=== PATIENT | female | born 2000 | race Asian ===

== ENCOUNTER 2018-10-17 14:57 | Emergency (ER) | payer OTHER ==
[~2018-10-17] VITALS: Ht 162.6 cm; Wt 51.3 kg
[2018-10-17 15:13] VITALS: Ht 162.6 cm; Wt 51.3 kg
[2018-10-17 16:52] LABS: microscopic required? NO
[2018-10-17 16:58] LABS: urine erythrocyte NEGATIVE (NEGATIVE)
[2018-10-17 17:02] LABS: CARBON DIOXIDE 29.4 mmol/L (21-32); CHLORIDE SERUM 108 mmol/L (98-107); CREATININE SERUM 0.8 mg/dL (0.6-1.0); GFR1 > 60 mL/min; GLUCOSE SERUM 67 mg/dL (74-106); SODIUM SERUM 146 mmol/L (136-145)
[2018-10-17 17:05] LABS: BASOPHIL % 0.5 % (0-2); PLATELET COUNT 219 x10^3mcL (130-400); RED CELL DISTRIBUTION WIDTH 14.3 % (11.5-14.5)
[2018-10-17 17:06] LABS: ALBUMIN 3.9 g/dL (3.4-5.0); ALKALINE PHOSPHATASE 56 U/L (46-116); ALT/SGPT 20 U/L (14-59); AST/SGOT 12 U/L (15-37); BILIRUBIN TOTAL 0.49 mg/dL (0.20-1.00); TOTAL PROTEIN, SERUM 7.2 g/dL (6.4-8.2)
[2018-10-17 17:09] LABS: AMPHETAMINE QUAL UR NONE DETECTED (See below)
[2018-10-17 18:16] VITALS: BP 109/73
== END 2018-10-17 18:16 | disposition home or self-care (01) ==
LOC: ED 14:57
PROVIDERS: Emergency Medicine
DX: F41.9 Anxiety disorder, unspecified (principal); Z13.9 Encounter for screening, unspecified
CPT/HCPCS: 36415; 82962; G0480

== ENCOUNTER 2018-11-06 12:02 | Emergency (ER) | payer OTHER ==
[~2018-11-06] VITALS: Ht 165.1 cm; Wt 54.4 kg
[2018-11-06 12:16] VITALS: Ht 165.1 cm; Wt 54.4 kg
--- NOTE | 2018-11-06 12:19 | NUR ---
PT'S BELONGINGS IN RADIO ROOM IN TWO BAGS
--- NOTE | 2018-11-06 12:20 | NUR ---
PATIENT BIB PD 5150 GRAVELY DISABLED, PER PD, PATIENT STS SHE THOUGHT SHE WAS AND PROCEEDED WITH TAKING PLAN B. PD STS PATIENT STATED THAT SHE HASN'T SLEPT FOR 4 DAYS AND HAS NOT EATEN. PER PD, MOTHER CALLED AND STS THAT PATIENT WAS THROWING ITEMS AND SCREAMING AT GRANDFATHER. ASSESSED PATIENT AND PATIENT STS SHE HAS HISTORY OF SI WITH ATTEMPTS TO OD, STS THAT HER LAST ATTEMPT WAS OVER 1 YEAR AGO. PATIENT STS SHE CURRENTLY HAS NO SI IDEATION, STS NOT HEARING ANY VOICES, STS NO ITENT ON HARMING HERSELF OR OTHERS. STS THAT SHE IS DEALING WITH HER GRANDMOTHER'S . STS "THEY JUST THREW STUFF AT HER COFFIN!" WHEN ASKED IF SHE WAS IN ANY PAIN, STS "BODY PARTS JUST WEREN'T FEELING RIGHT". WHEN ASKED IF SHE HAS SLEPT, PATIENT STS "THERE WAS JUST SO MUCH TO CLEAN". DR. GUERRERO AT BEDSIDE PERFORMING MSE
--- NOTE | 2018-11-06 12:20 | NUR ---
PATIENT BIB PD FOR 515 GRAVELY DISABLED
--- NOTE | 2018-11-06 12:30 | NUR ---
PATIENT STS SHE CURRENTLY IS UNABLE TO URINATE. WILL TRY AGAIN IN 20 MINUTES
[2018-11-06 12:43] LABS: BASOPHIL % 0.3 % (0-2); PLATELET COUNT 205 x10^3mcL (130-400); RED CELL DISTRIBUTION WIDTH 13.2 % (11.5-14.5)
[2018-11-06 12:55] LABS: CALCIUM 9.8 mg/dL (8.5-10.1); CARBON DIOXIDE 23.8 mmol/L (21-32); CHLORIDE SERUM 106 mmol/L (98-107); CREATININE SERUM 0.7 mg/dL (0.6-1.0); GFR1 > 60 mL/min; GLUCOSE SERUM 81 mg/dL (74-106); POTASSIUM SERUM 4.6 mmol/L (3.5-5.1); SODIUM SERUM 140 mmol/L (136-145)
[2018-11-06 13:00] LABS: ALBUMIN 4.4 g/dL (3.4-5.0); ALKALINE PHOSPHATASE 50 U/L (46-116); ALT/SGPT 18 U/L (14-59); AST/SGOT 13 U/L (15-37); TOTAL PROTEIN, SERUM 7.9 g/dL (6.4-8.2)
--- NOTE | 2018-11-06 13:00 | NUR ---
PATIENT AMBULATED TO RESTROOM WITH EBONY ALLEN. PATIENT RETURNED BACK TO BEDSIDE. STEADY GAIT NOTED.
[2018-11-06 13:10] LABS: microscopic required? NO
[2018-11-06 13:16] LABS: BILIRUBIN TOTAL 0.57 mg/dL (0.20-1.00)
[2018-11-06 13:24] LABS: AMPHETAMINE QUAL UR NONE DETECTED (See below); urine erythrocyte NEGATIVE (NEGATIVE)
--- NOTE | 2018-11-06 13:24 | NUR ---
PATIENT RESTING AT BEDSIDE IN NAD
--- NOTE | 2018-11-06 13:30 | NUR ---
PATIENT STS SHE WOULD LIKE FOOD. APPROVED. WILL ORDER LUNCH
--- NOTE | 2018-11-06 13:42 | NUR ---
PATIENT EATING AT BEDSIDE
--- NOTE | 2018-11-06 14:27 | NUR ---
PATIENT RESTING AT BEDSIDE IN NAD. PATIENT HEARD YELLING AND TALKING TO HERSELF. PATIENT STS, "IT'S THE ZEB, 1-2-3, REDUCE, REUSE, RECYLE, CAN YOU BELIEVE THAT PEOPLE 8 KIDS! IT SHOULD BE THE MOTHER, FATHER, AND CHILD!" ASKED PATIENT IF SHE IS IN ANY PAIN AND ASKED IF SHE WILL COOPERATE. PATIENT STS SHE WILL LOWER HER VOICE AND COOPERATE.
--- NOTE | 2018-11-06 14:45 | NUR ---
FATHER AT BEDSIDE
--- NOTE | 2018-11-06 15:17 | NUR ---
PATIENT COMMUNICATING CALMLY WITH FATHER AT BEDSIDE. PATIENT REQUESTS FOR CELL PHONE. CURRENTLY USING CELL PHONE WITH FATHER WATCHING. CURTAINS DRAWN AND PATIENT CAN BE CLEARLY VIEWED BY NURSES AT BEDSIDE.
--- NOTE | 2018-11-06 17:08 | NUR ---
PATIENT RESTING AT BEDSIDE IN NAD. STS SHE WANTS SOMETHING TO WIPE HER FACE WITH. GAVE PATIENT SOME WET WIPES. OFFERED WATER TO PATIENT. PATIENT'S PARENTS WERE AT BEDSIDE AND ARGUING, PARENTS WERE ASKED TO LEAVE. PARENTS COOPERATED AND LEFT.
--- NOTE | 2018-11-06 17:23 | NUR ---
PATIENT WAS UPSET WHEN PARENTS WERE AT BEDSIDE. COMMUNICATED TO PARENTS TO LEAVE THE BEDSIDE. PARENTS COOPERATED. PATIENT IS CURRENTLY CALM AND COOPERATING
--- NOTE | 2018-11-06 18:31 | NUR ---
PATIENT EATING FOOD AND TALKING ON THE CELL PHONE. PATIENT IN NAD.
--- NOTE | 2018-11-06 18:36 | NUR ---
PATIENT RESTING AT BEDSIDE IN NAD. BREATHING E/U, BILATERAL CHEST RISE. BED AT LOWEST POSTION. PATIENT CURRENTLY STILL EATING AND TALKING ON THE CELL PHONE. CURTAINS DRAWN AND PATIENT CAN BE CLEARLY VIEWED FROM NURSES AT STATION.
--- NOTE | 2018-11-06 19:17 | NUR ---
PT EATING DINNER IN BED
--- NOTE | 2018-11-06 19:17 | NUR ---
REPORT RECEIVED FROM YADY CARVER RN I WILL BE RESUMING CARE OF PT AT THIS TIME
--- NOTE | 2018-11-06 19:17 | NUR ---
REPORT OFF TO TANVIR FERRERA
--- NOTE | 2018-11-06 19:33 | NUR ---
PT SEEN CRYING LISTENING TO MUSIC. PT IS CONSOLABLE AND COOPERATIVE WHEN TAKING VITALS. I ASKED PT IF SHE WOULD LIKE TO TALK ABOUT IT AND PT STS "NO IT IS OKAY" PT CONTINUES TO LISTEN TO MUSIC AND PLACING HER HANDS IN PRAYING POSITION CLOSING HER EYES, PT IN VIEW OF NURSE STATION WILL CONTINUE TO MONITOR
--- NOTE | 2018-11-06 19:40 | NUR ---
PT SEEN SCRATCHING HER LEFT FOREARM PT INSTRUCTED TO STOP. PT WAS COOPERATIVE AND VERBALIZED UNDERSTANDING. PT DENIES SI AND HI AT THIS TIME. REDNESS WITH SCATTERED ABRASIONS NOTED TO LEFT FOREARM MD SAHNI MADE AWARE. PT IN VIEW OF NURSE STATION WILL CONTINUE TO MONITOR.
--- NOTE | 2018-11-06 20:15 | NUR ---
TELE PSYCH COMPUTER IN PT RM. PT AWAITING CONSULT
--- NOTE | 2018-11-06 20:25 | NUR ---
PT AMBULATORY WITH STEADY GAIT TO RESTROOM WITH KIRSTEN CAO PER KIRSTEN CAO RN PT WAS CALM AND COOPERATIVE AND RETURN TO BEDSIDE WITH NO INICIDENT
--- NOTE | 2018-11-06 20:35 | NUR ---
PT IN POSITION OF COMFORT RESPS E/U PT IN VIEW OF NURSE STATION WILL CONTINUE TO MONITOR
--- NOTE | 2018-11-06 20:55 | NUR ---
SPOKE WITH TELE PSYCH CONSULT MD SINGER. TELE PSYCH CONSULT NOW IN PROGRESS
--- NOTE | 2018-11-06 22:09 | NUR ---
ATTEMPTED TO GIVE PT ZYPREXA PER MD ORDERS. EDUCATED PT ON MEDICATION. PT STATES "I DONT FEEL COMFORTABLE TAKING IT IF I DONT HAVE INFORMATION PRINTED THAT I CAN READ". PT ALSO STATED "WHEN I AM GOING HOME, WHEN CAN I LEAVE". PT EDUCATED THAT SHE WOULD NOT BE LEAVING ED AT THIS TIME AND PROVIDED PATIENT EDUCATION INFORMATION TO PT ABOUT MEDICATION. PT STATES "ALSO I NEED A PHONE HYDRAULIC PLUMBER". PRIMARY RN MADE AWARE.
--- NOTE | 2018-11-06 22:15 | NUR ---
PT STATING "YOU DIDNT GIVE ME ALL THE INFORMATION" IN REGARDS TO THE MEDICATION. PT ALSO STATING "I NEED TO TALK TO MY FAMILY BEFORE I PUT ANYTHING ARTIFICAL IN MY BODY", "MY PHONE IS AND I NEED TO TALK TO THEM AND IM GETTING ANXIOUS", AND "I NEED TO TELL THEM WHATS HAPPENING HERE". PT GIVEN PT PHONE TO CONTACT FAMILY. PT STATING "IM ENGAGED AND I NEED TO TALK TO MY OR FIANCE". PRIMARY RN MADE AWARE.
--- NOTE | 2018-11-06 22:59 | NUR ---
PT IN POSITION OF COMFORT CALM AND COOPERATIVE TALKING WITH TIA MANUEL RN RESPS E/U WILL CONTINUE TO MONITOR
--- NOTE | 2018-11-06 23:13 | NUR ---
ACCOMPANIED PT TO RESTROOM AND BACK TO ER BED. PT IN NO DISTRESS, RESP E/U, AAOX4. PLACED PT BACK ON FULL CM, NSR, VSS. WILL CONT TO MONITOR.
--- NOTE | 2018-11-06 23:15 | NUR ---
MD SAHNI AT BEDSIDE DISCUSSING POC WITH PT
--- NOTE | 2018-11-06 23:15 | NUR ---
PT REFUSED TO TAKE ZYPREXA MD SAHNI MADE AWARE
--- NOTE | 2018-11-07 00:59 | NUR ---
PT IN POSITION OF COMFORT ON HER PHONE SMILING PT COOPERATIVE WHEN TAKING VITALS RESPS E/U PT IN VIEW OF NURSE STATION WILL CONTINUE TO MONITOR
--- NOTE | 2018-11-07 01:33 | NUR ---
PT IN POSITION OF COMFORT WARM BLANKET PROVIDED PT APPEARS CALM, LIGHTS DIMMED PER PT REQUEST AND COMFORT RESPS E/U PT IN VIEW OF NURSE STATION
--- NOTE | 2018-11-07 02:31 | NUR ---
PT LISTENING TO MUSIC ON HER PHONE IN NAD RESPS E/U VSS PT IN VIEW OF NURSE STATION WILL CONTINUE TO MONITOR
--- NOTE | 2018-11-07 02:55 | NUR ---
PT HAS VISITOR PT STS "MY SIGNIFICANT OTHER" AND IS OKAY WITH HIM COMING TO THE PT VERBALIZED UNDESTANDING TO BE CALM AND COOPERATIVE DURING HIS VISIT PT IN VIEW OF NURSE STATION
--- NOTE | 2018-11-07 03:55 | NUR ---
PT TALKING WITH HER SIGNIFICANT OTHER PT APPEARS CALM PT COOPERATIVE WHEN TAKING VITALS IN NAD AT THIS TIME RESPS E/U VSS PT IN VIEW OF NURSE STATION, WILL CONTINUE TO MONITOR
--- NOTE | 2018-11-07 04:55 | NUR ---
PT ON HER PHONE, RESPS E/U, VSS
--- NOTE | 2018-11-07 05:09 | NUR ---
PT EATING IN BED, VSS RESPS E/U IN NAD PT IN VIEW OF NURSE STATION
--- NOTE | 2018-11-07 05:28 | NUR ---
PT SCREAMING AND PULLING OFF VITAL EQUIPMENT IN ANGER YELLING "YOU LIAR" PT RIPPED OFF HER IDENTIFICATION BAND. PT APPEARS FRUSTRATED MOANING AND GRUNTING. MD SAHNI WITNESSED THIS WELL.
--- NOTE | 2018-11-07 05:40 | NUR ---
PT MEDICATED WITH ZYPREXA 5MG IM PER MD ORDER SEE EMAR RESPS E/U VSS
--- NOTE | 2018-11-07 06:10 | NUR ---
WARM BLANKET PROVIDED PER PT REQUEST AND COMFORT
--- NOTE | 2018-11-07 06:51 | NUR ---
PT ASLEEP BUT AROUSABLE PT IN POSITION OF COMFORT, RESPS E/U, VSS, PT IN VIEW OF NURSE STATION
--- NOTE | 2018-11-07 07:10 | NUR ---
REPORT GIVEN TO DIPTI LO RN WHO IS RESUMING CARE OF PT AT THIS TIME
--- NOTE | 2018-11-07 09:44 | NUR ---
SLEEPING AWAKABLE, COOPERATIVE ,REFUSED TO EAT WANTS TO SLEEP. SKIN WARM AND DRY TOT OUCH, RESP. EASY BREATH SOUNDS CLEAR, WILL CONTINUE TO MONITOR
--- NOTE | 2018-11-07 13:24 | NUR ---
pt currently awake and alert. eating lunch tray and watching tv. siderails up x 2. calm and cooperative. continue to monitor.
--- NOTE | 2018-11-07 15:02 | NUR ---
IRRIGATIONIST DESIGNER AT BEDSIDE COLLECTING BLOOD PT TOLERATING
[2018-11-07 15:31] LABS: CHOLESTEROL/HDL RATIO 2.3; PHOSPHOROUS 4.5 mg/dL (2.5-4.9)
[2018-11-07 15:39] LABS: FREE T4 1.07 ng/dL (0.76-1.46); FREE THYROXINE INDEX 3.1 ug/dL (1.4-4.5); T4(THYROXINE) 9.9 ug/dL (4.7-13.3)
[2018-11-07 15:42] LABS: T3 TOTAL 1.02 ng/mL
--- NOTE | 2018-11-07 15:44 | NUR ---
FAMILY MEMBERS AT BEDSIDE WITH PATIENT.
--- NOTE | 2018-11-07 16:05 | NUR ---
PAGED DUE TO INCREASED AGITATION, NOT FOLLOWING COMMANDS, TAKING OBJECTS OFF QUEZADA IN ROOM, PARANOID BEHAVIOR, PULLING CORDS OUT OF CUPBOARDS, OPENING MEDICAL EQUIPMENT, ATTEMPTING TO REACH IN SHARPS CONTAINER. ATTEMPTED TO RE-ORIENT PT TO UNIT; PROVIDED WITH DIVERSIONAL ACTIVITIES SUCH TV. COMFORT MEASURES GIVEN. PT CONTINUES TO BE UNWILLING TO COOPERATE.
--- NOTE | 2018-11-07 16:12 | NUR ---
PT PLACED INTO 4PT SOFT RESTRAINTS FOR PT. SAFETY. PT EDUCATED ON NEEDS FOR RESTRAINTS. ADVISED PT SHE WILL BE TAKEN OUT OF RESTRAINTS ONCE SHE IS ABLE TO FOLLOW COMMANDS. PT CONTINUOUSLY ATTTEMPING TO GET OUT OF RESTRAITS DESPITE REDIRECTION. CONTINUE TO MONITOR.
--- NOTE | 2018-11-07 16:20 | NUR ---
PT EDUCATED ON MEDICATION, ATIVAN. PT VERBALIZED UNDERSTANDING. MEDICATED AND TOLERATED WELL. CONNECTED TO PULSE OX; CURTAIN OPEN AND IN VIEW OF NURSES STATION. BELONGINGS PLACED IN RADIO ROOM.
--- NOTE | 2018-11-07 16:36 | NUR ---
2 50 DOLLAR BILLS GIVEN TO SECURITY TO BE PLACED IN SAFE. PHONE AND BELONGINGS REMOVED FROM ROOM, LABELED AND PLACED IN CUBBARD.
--- NOTE | 2018-11-07 16:48 | NUR ---
PT SLEEPING. BREATHING EVEN UNLABORED. PT RESPONDS TO VERBAL STIMULI. NOTIFED PT THAT RESTRAINTS WOULD BE REVMOVED. PT VERBALIZED "OK" AND WENT BACK TO SLEEP.
--- NOTE | 2018-11-07 19:37 | NUR ---
PT REMAINS BREATHING EVEN UNLABORED. NO RESP DISTRESS. SLEEPING. RESPONDS TO TACTILE STIMULI. REPORT GIVEN TO ALICE AT [facility].
--- NOTE | 2018-11-07 19:49 | NUR ---
REPORT GIVEN TO [facility] ([facility] TRANSPORT . PT SLEEPING. BREATHING EVEN UNLABORED. NO DISTRESS.
[2018-11-07 20:02] VITALS: BP 92/59
--- NOTE | 2018-11-07 20:03 | NUR ---
PT TRANSFERRED TO [facility] BY [facility] N[facility]. PT STABLE UPON TRANSFER. NO S/S OF DISTRESS. RESP E/U.
== END 2018-11-07 20:02 ==
LOC: ED 12:02 → MU 11-07 15:18 → ED 11-07 20:02
PROVIDERS: Emergency Medicine; Internal Medicine
DX: F29 Unspecified psychosis not due to a substance or known physiological condition (principal)
CPT/HCPCS: 36415; 84439; G0480; J2060; J3490

== ENCOUNTER 2018-12-12 00:31 | Emergency (ER) | payer OTHER ==
[~2018-12-12] VITALS: Ht 165.1 cm; Wt 54.4 kg
[2018-12-12 00:48] VITALS: Ht 165.1 cm; Wt 54.4 kg
[2018-12-12 02:01] LABS: BASOPHIL % 0.5 % (0-2); PLATELET COUNT 241 x10^3mcL (130-400); RED CELL DISTRIBUTION WIDTH 12.7 % (11.5-14.5)
[2018-12-12 02:20] LABS: CALCIUM 9.4 mg/dL (8.5-10.1); CARBON DIOXIDE 26.9 mmol/L (21-32); CHLORIDE SERUM 105 mmol/L (98-107); CREATININE SERUM 0.8 mg/dL (0.6-1.0); GFR1 > 60 mL/min; GLUCOSE SERUM 94 mg/dL (74-106); POTASSIUM SERUM 4.4 mmol/L (3.5-5.1); SODIUM SERUM 140 mmol/L (136-145)
[2018-12-12 02:27] LABS: AMPHETAMINE QUAL UR NONE DETECTED (See below)
[2018-12-12 02:45] LABS: ALBUMIN 4.2 g/dL (3.4-5.0); ALKALINE PHOSPHATASE 53 U/L (46-116); ALT/SGPT 84 U/L (14-59); AST/SGOT 33 U/L (15-37); BILIRUBIN TOTAL 0.24 mg/dL (0.20-1.00)
--- NOTE | 2018-12-12 07:52 | NUR ---
[facility] still working on finding placement. will continue to f/u with facilities. Will contact with any updates.
[2018-12-12 09:37] VITALS: BP 120/62
--- NOTE | 2018-12-12 12:16 | NUR ---
The following facilities has been sent an intake packet for review for placement, at this time no beds are avialable but once accepted at any of these facilities they will inform us. We shall update you as well. Yolanda lCancy/ MATTHIEU Biswas/ [facility]/ Gurpreet Lopez/ [facility]/ Nikolai Llamas/ Oliver López/ Harry Garcia
--- NOTE | 2018-12-12 14:51 | NUR ---
Notified that patient was accepted to [facility] for continuity of care....glad to help thank you
== END 2018-12-12 10:55 ==
LOC: ED 00:31
PROVIDERS: Emergency Medicine
DX: F31.9 Bipolar disorder, unspecified (principal); G47.00 Insomnia, unspecified
CPT/HCPCS: 36415; G0480; J2060; J3486